=== PATIENT | female | born 1980 | race African-American/Black ===

== ENCOUNTER 2020-08-27 20:42 | Emergency (ER) | payer MEDICAID ==
[~2020-08-27] VITALS: Ht 175.3 cm; Wt 113.4 kg
[2020-08-27 21:00] VITALS: BP 169/108
[2020-08-27] MEDS ORDERED: KETOROLAC TROMETH 60MG/2ML VIAL IM ONE (22:30)
[2020-08-27] MEDS ORDERED: methylPREDNISolone SOD SUCC 125 MG/2 ML VL IM ONE (22:30)
== END 2020-08-28 00:24 | disposition home or self-care (01) ==
LOC: EDBD 20:42 → ER 20:57
DX: S72.412A Displaced unspecified condyle fracture of lower end of left femur, initial encounter for closed fracture (principal); W07.XXXA Fall from chair, initial encounter; Y93.89 Activity, other specified; Y92.89 Other specified places as the place of occurrence of the external cause; Y99.8 Other external cause status
CPT/HCPCS: 29505; 73562; 96372; 99284; J1885; J2930; 29515

== ENCOUNTER 2020-09-17 23:33 | Emergency (ER) | payer MEDICAID ==
[~2020-09-17] VITALS: Ht 175.3 cm; Wt 108.9 kg
[2020-09-18] MEDS ORDERED: KETOROLAC TROMETH 60MG/2ML VIAL IM ONE
[2020-09-18 01:08] VITALS: BP 146/92
== END 2020-09-18 02:39 | disposition home or self-care (01) ==
LOC: EDUNIT# 23:33 → EDBD 23:33 → ER 23:35
DX: S72.92XA Unspecified fracture of left femur, initial encounter for closed fracture (principal); M17.12 Unilateral primary osteoarthritis, left knee; W18.11XA Fall from or off toilet without subsequent striking against object, initial encounter; Y93.89 Activity, other specified; Y92.89 Other specified places as the place of occurrence of the external cause; Y99.8 Other external cause status
CPT/HCPCS: 29505; 73562; 96372; 99283; J1885